=== PATIENT | female | born 1995 | race Caucasian/White ===

== ENCOUNTER 2018-02-18 20:48 | Emergency (ER) | payer MEDICAID ==
[2018-02-18] MEDS ORDERED: KETOROLAC TROMETHAMINE 60 MG/2 ML SDV IM ONE (21:43)
--- NOTE | 2018-02-18 21:47 | ER Document Report ---
ED Neck/Back Problem - General Chief Complaint: Back Pain Stated Complaint: BACK PAIN Time Seen by Provider: 02/18/18 21:18 Notes: 22-year-old female, athletic individual who states that she is having spasms on the left upper thoracic spine muscles/paraspinal muscles radiating up into her posterior neck. Denies any chest pain. Denies any shortness of breath. Denies any nausea or vomiting. No prior history of chest pathology. Patient states that she works out every day. Took x2 800 mg ibuprofen's today but still having some pain. TRAVEL OUTSIDE OF THE [place] IN LAST 30 DAYS: No - HPI Onset: This afternoon Where: Home Onset: Gradual Timing: Waxing and waning, Better Quality of pain: Cramping Severity: Moderate Pain Level: 3 Context: Lifting. denies: Became dizzy, Fainted, Fall/near-fall Associated symptoms: None Exacerbated by: Other - Moving her left arm Relieved by: Nothing - Related Data Allergies/Adverse Reactions: No Known Allergies Allergy (Unverified 02/18/18 20:53) Past Medical History - General Information source: Patient - Social History Smoking Status: Never Smoker Chew tobacco use (# tins/day): No Frequency of alcohol use: None Drug Abuse: None Lives with: Family Family History: Reviewed & Not Pertinent Patient has suicidal ideation: No Patient has homicidal ideation: No - Medical History Medical History: Negative Renal/ Medical History: Denies: Hx Peritoneal Dialysis Review of Systems - Review of Systems Constitutional: denies: Fever, Malaise, Weakness EENT: denies: Throat pain, Difficulty swallowing, Throat swelling Cardiovascular: denies: Chest pain, Palpitations, Heart racing Respiratory: denies: Cough, Hurts to breathe, Short of breath, Wheezing Musculoskeletal: See HPI, Back pain, Muscle pain, Muscle stiffness, Neck pain. denies: Joint pain Skin: denies: Dryness, Lesions, Lumps, Rash Neurological/Psychological: denies: Confusion, Weakness, Numbness, Tingling Physical Exam - Vital signs Vitals: Temp Pulse Resp BP Pulse Ox 97.6 F 86 16 123/57 L 100 02/18/18 20:54 02/18/18 20:54 02/18/18 20:54 02/18/18 20:54 02/18/18 20:54 Interpretation: Normal - Respiratory Respiratory status: No respiratory distress Chest status: Nontender Breath sounds: Normal Chest palpation: Normal - Cardiovascular Rhythm: Regular Heart sounds: Normal auscultation Murmur: No - Abdominal Inspection: Normal Distension: No distension Bowel sounds: Normal Tenderness: Nontender Organomegaly: No organomegaly - Back Back: Tender - Mild tenderness to palpation in the paraspinal muscles upper thoracic spine and the trapezius muscle on the left. There is no midline tenderness. There is no nuchal rigidity. Full range of motion of the neck. No step-offs.. No: Deformity/step-off, CVA tenderness, Vertebra tenderness - Extremities General upper extremity: Normal inspection, Nontender, Normal color, Normal ROM , Normal temperature General lower extremity: Normal inspection, Nontender, Normal color, Normal ROM , Normal temperature, Normal weight bearing. No: Veena's sign Course - Re-evaluation Re-evalutation: 02/18/18 22:40 At this time patient appears to be having some muscle spasm. I have advised her if she is working out heavily to sure if she is getting plenty of electrolytes including sodium, potassium and magnesium. Encouraged her to do adequate hydration. I encouraged her at this time to do some anti- inflammatories, ice packs and will prescribe her some baclofen if the spasms are getting worse. In the event that she develops any chest pains, shortness of breath, numbness, tingling or any worsening symptoms patient is been instructed to seek repeat evaluation and medical attention. - Vital Signs Vital signs: Temp Pulse Resp BP Pulse Ox 99.4 F 76 16 126/64 H 100 02/18/18 22:12 02/18/18 22:12 02/18/18 22:12 02/18/18 22:12 02/18/18 22:12 Discharge - Discharge Clinical Impression: Back muscle spasm Condition: Good Disposition: HOME, SELF-CARE Instructions: Muscle Strain ([facility]), Warm Packs ([facility]) Additional Instructions: In the event that she developed shortness of breath, worsening pain, chest pain , or other concerns please seek immediate medical attention. Plenty of fluids. Prescriptions: Baclofen [Baclofen 20 Mg Tablet] 20 mg PO BID PRN 5 Days #20 tablet PRN Reason:
[2018-02-18 22:13] VITALS: BP 126/64
== END 2018-02-18 22:14 | disposition home or self-care (01) ==
LOC: ER 20:48
DX: M62.830 Muscle spasm of back (principal)
CPT/HCPCS: 99283; 96372; J1885

== ENCOUNTER 2019-02-26 13:45 | Emergency (ER) | payer MEDICAID, OTHER ==
--- NOTE | 2019-02-26 14:32 | ER Document Report ---
ED Medical Screen (RME) - General Chief Complaint: Dizziness Stated Complaint: HEADACHE Time Seen by Provider: 02/26/19 14:23 Mode of Arrival: Ambulatory Information source: Patient Notes: This 23-year-old female presents the emergency department with complaints of dizziness vaginal discharge and diarrhea for the past 3 days. Patient is approximately 20 weeks last menstrual period was in September. . She reports she has been dizzy for the past 20 weeks but recently it increased. Reports it is random. Patient also reports she is been having some yellow vaginal discharge recently denies possible STD. Reports possible bacterial vaginosis. Reports diarrhea 3-4 times a day for the past 3 days. Reports she went to [place] night out last night and experienced increased dizziness. She denies pain with void. Denies abdominal pain. Denies back pain. Denies fever and vomiting. Reports her FROG SHAKER is in [place]. Patient is sitting comfortably no apparent distress. I have greeted and performed a rapid initial assessment of this patient. A comprehensive ED assessment and evaluation of the patient, analysis of test results and completion of the medical decision making process will be conducted by additional ED providers. Dictation of this chart was performed using voice recognition software; therefore, there may be some unintended grammatical errors. TRAVEL OUTSIDE OF THE [place] IN LAST 30 DAYS: No - Related Data Allergies/Adverse Reactions: No Known Allergies Allergy (Verified 02/26/19 13:46) Past Medical History Renal/ Medical History: Denies: Hx Peritoneal Dialysis Physical Exam - Vital signs Vitals: Temp Pulse Resp BP Pulse Ox 97.4 F 82 18 124/56 L 100 02/26/19 13:50 02/26/19 13:50 02/26/19 13:50 02/26/19 13:50 02/26/19 13:50 Course - Vital Signs Vital signs: Temp Pulse Resp BP Pulse Ox 97.4 F 82 18 124/56 L 100 02/26/19 13:50 02/26/19 13:50 02/26/19 13:50 02/26/19 13:50 02/26/19 13:50
[2019-02-26 15:15] LABS: APPEARANCE,URINE SLIGHTLY-CLOUDY; BILIRUBIN,URINE NEGATIVE (NEGATIVE); COLOR,URINE YELLOW; GLUCOSE, URINE NEGATIVE (NEGATIVE); KETONES,URINE NEGATIVE (NEGATIVE); LEUKOCYTE ESTERASE,URINE LARGE (NEGATIVE); NITRITE,URINE NEGATIVE (NEGATIVE); PROTEIN,URINE NEGATIVE (NEGATIVE); URINE SPECIFIC GRAVITY 1.015; UROBILINOGEN,URINE NEGATIVE mg/dL (<2.0)
--- NOTE | 2019-02-26 15:18 | ER Document Report ---
ED General - General Chief Complaint: Dizziness Stated Complaint: HEADACHE Time Seen by Provider: 02/26/19 14:23 Mode of Arrival: Ambulatory Notes: Healthy 23-year-old G2, P1 20-week 4-day female presents to the emergency department with chief complaint of dizziness x1 week diarrhea x3 to 4 days, and abnormal yellow vaginal discharge over the last couple of days. Patient states that she has been dizzy her entire reported as positional when she would go from a laying to a standing position but she states that over the last week it is getting significantly worse where it is constant and last night [place] she felt like she was about to pass out. That is when she got concerned and decided to seek care today after attempting to rest last night. Patient states for the last 3 to 4 days as well she has had diarrhea 3-4 episodes per day. She thinks this is e xacerbating possible dehydration. Patient denies any acute weakness, denies nausea or vomiting, denies any abdominal pain or abdominal cramping, denies any vaginal bleeding, denies any dysuria/urinary frequency/urgency. Patient denies any back pain or flank pain. She has established OB care in [place]. No other complaints at this time. TRAVEL OUTSIDE OF THE [place] IN LAST 30 DAYS: No - Related Data Allergies/Adverse Reactions: No Known Allergies Allergy (Verified 02/26/19 13:46) Past Medical History - General Information source: Patient - Social History Smoking Status: Never Smoker Chew tobacco use (# tins/day): No Frequency of alcohol use: None Drug Abuse: None Family History: Reviewed & Not Pertinent Patient has suicidal ideation: No Patient has homicidal ideation: No Pulmonary Medical History: Reports: Hx Asthma Renal/ Medical History: Denies: Hx Peritoneal Dialysis Past Surgical History: Reports: Hx Section, Hx Orthopedic Surgery Review of Systems - Review of Systems Constitutional: See HPI EENT: No symptoms reported Cardiovascular: See HPI Respiratory: See HPI Gastrointestinal: See HPI Genitourinary: See HPI Female Genitourinary: See HPI Musculoskeletal: No symptoms reported Skin: No symptoms reported Hematologic/Lymphatic: No symptoms reported Neurological/Psychological: See HPI Physical Exam - Vital signs Vitals: Temp Pulse Resp BP Pulse Ox 97.4 F 82 18 124/56 L 100 02/26/19 13:50 02/26/19 13:50 02/26/19 13:50 02/26/19 13:50 02/26/19 13:50 - Notes Notes: PHYSICAL EXAMINATION: Reviewed vital signs and charting by RN GENERAL: Alert, interacts well. No acute distress. HEAD: Normocephalic, atraumatic. EYES: Pupils equal and round. Extraocular movements intact. ENT: Oral mucosa moist, tongue midline. NECK: Full range of motion. Trachea midline. LUNGS: Clear to auscultation bilaterally, no wheezes, rales, or rhonchi. No respiratory distress. HEART: Regular rate and rhythm. No murmur ABDOMEN: soft, non-tender. Gravid abdomen. Bowel sounds present : Pelvic exam performed with SOPHIA Lipscomb present as bone grinder. Speculum only placed part way to obtain vaginal canal samples and there was a small amount of whitish-yellow discharge. EXTREMITIES: Moves all 4 extremities spontaneously. No edema, No cyanosis. PSYCH: Normal affect, normal mood. SKIN: Warm, dry, normal turgor. No rashes or lesions noted. Course - Re-evaluation Re-evalutation: 02/26/19 15:29 Patient is generally well-appearing and nontoxic. She does report a headache and dizziness at this time. Lab work is being obtained, plan is to give patient some IV rehydration, pelvic exam performed, please see physical exam for details. Wet mount has been sent to the lab. I suspect this patient may be dehydrated as she has had a recent diarrheal illness with worsening baseline dizziness. 02/26/19 17:09 Patient received acetaminophen 975 mg p.o. and Benadryl 25 mg IV once. Patient also received normal saline 1 L and states she is feeling better and her head ache has eased off and she is not feeling as dizzy. I asked her if she wanted an additional liter and she said yes. Wet mount has returned and the result is consistent with bacterial vaginosis. Her urine showed large leuk esterase with 3 WBCs so I sent it for culture. At this time patient is stable, vital signs are within normal limits. And she is stable for discharge. Return precautions given. - Vital Signs Vital signs: Temp Pulse Resp BP Pulse Ox 97.4 F 82 18 124/56 L 100 02/26/19 13:50 02/26/19 13:50 02/26/19 13:50 02/26/19 13:50 02/26/19 13:50 - Laboratory Result Diagrams: 02/26/19 15:30 02/26/19 15:30 Laboratory results interpreted by me: 02/26/19 02/26/19 14:51 15:30 Sodium 135.8 L Creatinine 0.51 L Total Bilirubin 1.4 H Ur Leukocyte Esterase LARGE H Discharge - Discharge Clinical Impression: Dizziness, Bacterial vaginosis in Condition: Good Disposition: HOME, SELF-CARE Additional Instructions: You have an overgrowth of natural vaginal bacteria, called bacterial vaginosis. You are being treated with an antibiotic called metronidazole. Do not drink alcohol while taking this medication. Complete all of the antibiotic even if your symptoms have resolved. Return for abdominal pain, vomiting, fever of greater than 101F, or any other symptoms that are worrisome to you. Please follow-up with your TOP TILE DECORATOR or primary care doctor as needed. Also, you were treated for dizziness that was most likely related to some dehydration. Your lab work did not show evidence but based on your history and clinical symptoms you were given some IV fluids. Also, for your headache we gave you Tylenol and Benadryl. Benadryl is category B in and safe to take. It is used off label for nausea and vomiting in case you have those symptoms as well. If you continue to have persistent diarrhea, intractable nausea or intractable vomiting, persistent acute weakness or lightheadedness please immediately return to the emergency department. Please follow-up with your weight yardage checker in the next 24 to 48 hours concerning your ER visit. Prescriptions: Metronidazole [Flagyl 500 mg Tablet] 500 mg PO BID 7 Days #14 tablet
[2019-02-26] MEDS ORDERED: NORMAL SALINE 1000 ML 1,000 ML IV ONE ×2 (15:30→16:31)
[2019-02-26] MEDS ORDERED: DIPHENHYDRAMINE HCL 50 MG/ML VIAL IV ONE (15:32)
[2019-02-26] MEDS ORDERED: ACETAMINOPHEN 325 MG TABLET PO ONE (15:32)
[2019-02-26 16:10] LABS: ABSOLUTE LYMPHOCYTES (AUTO) 0.9 10^3/uL (0.5-4.7); ABSOLUTE MONOCYTES (AUTO) 0.5 10^3/uL (0.1-1.4); BASOPHILS % (AUTO) 0.3 % (0-2); EOSINOPHILS % (AUTO) 0.4 % (0-6); HEMATOCRIT 37.2 % (36.0-47.0); HEMOGLOBIN 13.2 g/dL (12.0-15.5); LYMPHOCYTES % (AUTO) 17.1 % (13-45); MEAN CORPUSCULAR HGB CONC 35.4 g/dL (32.0-36.0); MEAN CORPUSCULAR VOLUME 88 fl (80-97); MONOCYTES % (AUTO) 9.1 % (3-13); PLATELET COUNT 199 10^3/uL (150-450); RED BLOOD COUNT 4.24 10^6/uL (3.72-5.28); SEGMENTED NEUTROPHILS % (AUTO) 73.1 % (42-78); TOTAL CELLS COUNTED % (AUTO) 100 %; WHITE BLOOD COUNT 5.5 10^3/uL (4.0-10.5)
[2019-02-26 16:35] LABS: ALBUMIN 4.2 g/dL (3.5-5.0); ALKALINE PHOSPHATASE 56 U/L (38-126); ANION GAP 9 (5-19); ASPARTATE AMINO TRANSFERASE 28 U/L (14-36); BILIRUBIN,DIRECT 0.1 mg/dL (0.0-0.4); BILIRUBIN,TOTAL 1.4 mg/dL (0.2-1.3); BLOOD UREA NITROGEN 7 mg/dL (7-20); CALCIUM 9.4 mg/dL (8.4-10.2); CARBON DIOXIDE 23 mmol/L (22-30); CHLORIDE 104 mmol/L (98-107); GLUCOSE 76 mg/dL (75-110); POTASSIUM 3.9 mmol/L (3.6-5.0); TOTAL PROTEIN 6.9 g/dL (6.3-8.2)
[2019-02-26 16:47] LABS: BACTERIA (WET MOUNT) 3+ BACTERIA SEEN; EPITHELIALS (WET MOUNT) 3+ EPITHELIALS SEEN; RBCS (WET MOUNT) NO RBCS SEEN; T.VAGINALIS (WET MOUNT) NO TRICHOMONAS SEEN; WBCS (WET MOUNT) 1+ WBCS SEEN; YEAST (WET MOUNT) NO YEAST SEEN
[2019-02-26] MEDS ORDERED: METRONIDAZOLE 500 MG TABLET PO ONE (17:13)
[2019-02-26 17:32] VITALS: BP 102/50
--- NOTE | 2019-02-26 17:42 | EKG REPORT ---
SEVERITY:- BORDERLINE ECG - SINUS RHYTHM PROBABLE LEFT ATRIAL ABNORMALITY : Confirmed by: Mauricio Alexis MD 26-Feb-2019 17:41:47
[2019-02-26 18:14] LABS: CHLAM PCR NOT DETECTED (NOT DETECT)
== END 2019-02-26 17:32 | disposition home or self-care (01) ==
LOC: ER 13:45
DX: O23.592 Infection of other part of genital tract in pregnancy, second trimester (principal); B96.89 Other specified bacterial agents as the cause of diseases classified elsewhere; R42 Dizziness and giddiness; R51 Headache; Z3A.20 20 weeks gestation of pregnancy
CPT/HCPCS: 93005; 99284; 96361; 96374; 36415; 87086; 87210; 85025; 80053; 81001; 87491; 87591; 93010; J1200; J7030